=== PATIENT | male | born 1955 | race Caucasian/White ===

== ENCOUNTER 2018-08-20 12:04 | Outpatient (CLI) | payer BC ==
--- NOTE | 2018-08-20 13:52 | RAD ---
RIGHT GREAT TOE 3 VIEWS: HISTORY: Right great toe pain. FINDINGS: A small exostosis is noted involving the distal phalanx. 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 There is no acute bony process noted. IMPRESSION: Arthritic changes of the great toe. POS: [facility]
== END 2018-08-20 12:05 | disposition home or self-care (01) ==
LOC: BICRAD 12:04
PROVIDERS: ATTEND Podiatrist
DX: M79.674 Pain in right toe(s) (principal); M19.071 Primary osteoarthritis, right ankle and foot